=== PATIENT | male | born 1995 | race Caucasian/White ===

== ENCOUNTER → 2017-07-05 | Outpatient (CLI) | payer BC, OTHER | END | disposition home or self-care (01) | LOC: C.RDSM 12:32 | PROVIDERS: ATTEND Physical Medicine & Rehabilitation | DX: M25.461 Effusion, right knee (principal); Z98.890 Other specified postprocedural states ==

== ENCOUNTER → 2017-07-11 | Outpatient (CLI) | payer BC, OTHER ==
--- NOTE | 2017-07-11 17:02 | DIAGNOSTIC IMAGING REPORT ---
L LOWER EXT JOINT WITHOUT CLINICAL HISTORY: 21 years-old Male with LEFT KNEE PAIN. Acute left knee pain with history of prior ACL surgery January 2016. Acute knee pain status post injury during Lacrosse practice. Pain is most pronounced laterally and posteriorly. COMPARISON: Left knee radiographs 07/05/2017 TECHNIQUE: Multiplanar, multisequence MRI of the left knee was performed without intravenous contrast. FINDINGS: MENISCI: The medial meniscus appears normal in position, morphology and signal. There is mild blunting of the free edge lateral meniscal body without discrete tear identified. CRUCIATE LIGAMENTS: Prior ACL reconstruction with patellar tendon graft. No evidence of graft rupture or roof impingement. Posterior cruciate ligament is intact. COLLATERAL LIGAMENTS: The popliteus tendon, biceps femoris tendon, fibular collateral ligament and iliotibial band are intact. The superficial and deep components of the medial collateral ligament are intact. EXTENSOR MECHANISM: The quadriceps and patellar tendons are intact. Evidence of graft harvest involving the patellar tendon. The medial and lateral patellar retinacula are intact. KNEE JOINT: Moderate joint effusion. 8 x 6 mm osteochondral defect with depth of 2 mm involves the mid weightbearing lateral femoral condyle as seen on image 17 of series 6 and image 15 of series 9 with moderate associated bone marrow edema within the adjacent lateral femoral condyle. 4 mm osteochondral fragment is noted with fluid noted surrounding it as seen on image 17 of series 6 compatible with fragment instability. The articular cartilage is otherwise intact. BONE MARROW: The bone marrow signal is age appropriate. No fracture, or marrow replacing process. SOFT TISSUES: The periarticular soft tissues are normal. IMPRESSION: 1. 8 x 6 mm osteochondral defect of the mid weightbearing lateral femoral condyle with unstable 4 mm fragment as above. Moderate associated bone marrow edema involves the adjacent lateral femoral condyle. 2. Prior ACL reconstruction with patellar tendon graft. No evidence of graft failure or roof impingement. 3. Mild blunting of the free edge lateral meniscus without discrete tear identified. 4. Moderate joint effusion. The above report was generated using voice recognition software. It may contain grammatical, syntax or spelling errors. Electronically signed by: Kentrell Goode M.D. 07/11/2017 5:00 PM Dictated Date/Time: 07/11/2017 4:40 PM
== END | disposition home or self-care (01) ==
LOC: C.MRIBC 15:53
PROVIDERS: ATTEND Physical Medicine & Rehabilitation Sports Medicine
DX: M25.461 Effusion, right knee (principal); Z98.890 Other specified postprocedural states

== ENCOUNTER → 2017-11-07 | Outpatient (CLI) | payer BC, OTHER | END | disposition home or self-care (01) | LOC: C.RDSM 08-23 17:24 | PROVIDERS: ATTEND Physical Medicine & Rehabilitation Sports Medicine | DX: M25.512 Pain in left shoulder (principal) ==